=== PATIENT | male | born 2000 | race Caucasian/White ===

== ENCOUNTER 2022-06-04 06:07 | Emergency (ER) | payer BC ==
[2022-06-04 06:32] VITALS: BP 145/82; PULSE 95
[2022-06-04] MEDS ORDERED: Ketorolac 30 MG/ML SDV IM ONE (06:34)
[2022-06-04] MEDS ORDERED: Ondansetron 4 MG Tab.DIS PO ONE (06:34)
[2022-06-04 07:29] LABS: CARBON DIOXIDE,CO2 27.3 mmol/L (21.0-32.0); POTASSIUM,K 3.9 mmol/L (3.5-5.1)
== END 2022-06-04 11:46 | disposition home or self-care (01) ==
LOC: MW.ED 06:07
DX: M25.512 Pain in left shoulder (principal); R11.0 Nausea
CPT/HCPCS: 36415; 73030; 80053; 82947; 83690; 85025; 93005; 96372; 99284; A9270; J1885; 93010; 99283

== ENCOUNTER 2022-09-02 21:47 | Emergency (ER) | payer BC ==
[2022-09-02] MEDS ORDERED: Sodium Chloride 0.9% 10 ML Syringe FLUSH PRN (22:10)
[2022-09-02] MEDS ORDERED: Sodium Chloride 0.9% 1,000 ML IV ONE (22:10)
[2022-09-02] MEDS ORDERED: Metoclopramide 10 MG/2 ML SDV IVPUSH ONE (22:10)
[2022-09-02] MEDS ORDERED: Sodium Chloride 0.9% 2.5 ML Syringe FLUSH PRN (22:10)
[2022-09-02 22:59] LABS: CARBON DIOXIDE,CO2 26.5 mmol/L (21.0-32.0)
[2022-09-02 23:27] VITALS: BP 142/97; PULSE 78
== END 2022-09-02 23:33 | disposition home or self-care (01) ==
LOC: MW.ED 21:47
DX: K52.9 Noninfective gastroenteritis and colitis, unspecified (principal)
CPT/HCPCS: 36415; 80053; 83690; 85025; 96361; 96374; 99284; J2765; J3490; J7030

== ENCOUNTER 2022-09-20 18:26 | Emergency (ER) | payer BC ==
[2022-09-20] MEDS ORDERED: Ondansetron 4 MG/2 ML SDV IVPUSH ONE (18:36)
[2022-09-20] MEDS ORDERED: Sodium Chloride 0.9% 1,000 ML IV ONE (18:36)
[2022-09-20] MEDS ORDERED: Promethazine 25 MG/ML SDV IM ONE (19:26)
[2022-09-20 19:37] LABS: CARBON DIOXIDE,CO2 23.9 mmol/L (21.0-32.0); POTASSIUM,K 4.2 mmol/L (3.5-5.1)
[2022-09-20 20:25] VITALS: BP 138/71; PULSE 83
== END 2022-09-20 20:25 | disposition home or self-care (01) ==
LOC: MW.ED 18:26
DX: R11.2 Nausea with vomiting, unspecified (principal); J45.909 Unspecified asthma, uncomplicated; K21.9 Gastro-esophageal reflux disease without esophagitis; Z79.899 Other long term (current) drug therapy
CPT/HCPCS: 36415; 80053; 83690; 85025; 96361; 96372; 96374; 99284; J2405; J2550; J7030

== ENCOUNTER 2023-01-16 14:24 | Emergency (ER) | payer BC ==
[2023-01-16] MEDS ORDERED: Ondansetron 4 MG/2 ML SDV IVPUSH ONE (14:50)
[2023-01-16] MEDS ORDERED: Sodium Chloride 0.9% 1,000 ML IV ONE (14:50)
[2023-01-16] MEDS ORDERED: Famotidine 20 MG/2 ML SDV IVPUSH ONE (14:50)
[2023-01-16] MEDS ORDERED: Alum Hydro/Mag Hydro/Simeth XS 15 ML, Lidocaine 2% 5 ML PO ONE ×2 (14:51)
[2023-01-16 15:47] LABS: CARBON DIOXIDE,CO2 22.8 mmol/L (21.0-32.0); POTASSIUM,K 4.4 mmol/L (3.5-5.1)
[2023-01-16 16:15] VITALS: BP 122/78; PULSE 96
== END 2023-01-16 16:13 | disposition home or self-care (01) ==
LOC: MW.ED 14:24
DX: K21.9 Gastro-esophageal reflux disease without esophagitis (principal); J45.909 Unspecified asthma, uncomplicated; Z79.899 Other long term (current) drug therapy
CPT/HCPCS: 36415; 80053; 83690; 83735; 85025; 96361; 96374; 96375; 99284; A9270; J2405; J3490; J7030

== ENCOUNTER 2023-06-30 15:06 | Emergency (ER) | payer BC ==
[2023-06-30] MEDS ORDERED: Sodium Chloride 0.9% 2.5 ML Syringe FLUSH PRN (15:52)
[2023-06-30] MEDS ORDERED: Sodium Chloride 0.9% 1,000 ML IV STA (15:52)
[2023-06-30] MEDS ORDERED: Sodium Chloride 0.9% 10 ML Syringe FLUSH PRN (15:52)
[2023-06-30] MEDS ORDERED: Promethazine 25 MG/ML SDV IM STA (15:54)
[2023-06-30 16:15] LABS: BASOPHILS PERCENT AUTO 0.2 % (0.0-1.5); EOSINOPHILS ABSOLUTE AUTO 0.1 K/uL (0.0-0.7); EOSINOPHILS PERCENT AUTO 1.1 % (0.0-7.0); HEMOGLOBIN 15.9 g/dL (13.0-17.0); LYMPHOCYTES ABSOLUTE AUTO 2.2 K/uL (0.6-2.4); LYMPHOCYTES PERCENT AUTO 16.5 % (16.0-40.0); MEAN CORPUSCULAR HEMOGLOBIN 31.8 pg (27.0-32.0); MEAN CORPUSCULAR HGB CONC 33.8 g/dL (31.0-37.0); MONOCYTES ABSOLUTE AUTO 0.7 K/uL (0.0-0.8); NEUTROPHILS ABSOLUTE AUTO 10.3 K/uL (1.4-5.7); NEUTROPHILS PERCENT AUTO 77.2 % (48.0-80.0); NRBC ABSOLUTE 0 K/uL; PLATELET COUNT,PLT 333 K/uL (150-400); WHITE BLOOD CELL COUNT,WBC 13.31 K/uL (4.0-11.0)
[2023-06-30 16:48] LABS: A/G RATIO 0.9 (0.9-1.6); ALBUMIN 3.9 g/dL (3.4-5.0); BILIRUBIN TOTAL 0.3 mg/dL (0.2-1.0); CARBON DIOXIDE,CO2 26.8 mmol/L (21.0-32.0); CREATININE 1.3 mg/dL (0.8-1.3); EST CRCL DRUG DOSING (CG) 93.32 mL/min; MAGNESIUM 2.2 mg/dL (1.8-2.4); POTASSIUM,K 4.5 mmol/L (3.5-5.1); PROTEIN TOTAL,TP 8.1 g/dL (6.4-8.2)
[2023-06-30 16:52] VITALS: PULSE 98
[2023-06-30 17:06] LABS: APPEARANCE,URINE CLEAR; BILIRUBIN,URINE NEGATIVE (NEGATIVE); COLOR,URINE YELLOW; GLUCOSE,URINE NEGATIVE (NEGATIVE); KETONES,URINE NEGATIVE (NEGATIVE); LEUKOCYTE ESTERASE,URINE NEGATIVE (NEGATIVE); NITRITE,URINE NEGATIVE (NEGATIVE); OCCULT BLOOD,URINE NEGATIVE (NEGATIVE); PH,URINE 5.5 (5.0-8.0); PROTEIN,URINE NEGATIVE (NEGATIVE); UROBILINOGEN,URINE 0.2 EU/dL (<2.0)
[2023-06-30 17:43] VITALS: BP 144/85
== END 2023-06-30 17:43 | disposition home or self-care (01) ==
LOC: MW.ED 15:06
DX: R11.2 Nausea with vomiting, unspecified (principal); J45.909 Unspecified asthma, uncomplicated; K21.9 Gastro-esophageal reflux disease without esophagitis; Z79.899 Other long term (current) drug therapy
CPT/HCPCS: 36415; 80053; 81003; 83690; 83735; 85025; 93005; 96360; 96372; 99284; J2550; J3490; J7030; 93010; 99283